=== PATIENT | male | born 1970 | race Caucasian/White ===

== ENCOUNTER 2024-11-06 07:04 | Outpatient (OUT) | payer BC, SELFPAY | END 2024-11-06 07:05 | disposition home or self-care (01) | LOC: PST 07:05 | PROVIDERS: PCP Nurse Practitioner; Visit Provider Surgery | DX: Z12.11 Encounter for screening for malignant neoplasm of colon (principal) ==

== ENCOUNTER 2024-11-17 06:45 | Day surgery (SDC) | payer BC, SELFPAY ==
[2024-11-17 07:00] VITALS: BP 132/87; PULSE 76; TEMP 36.2; O2SAT 95; BMI 33.0
[2024-11-17] MEDS: 0.9 % SODIUM CHLORIDE 500 ML 50 ML IV (07:21)
--- NOTE | 2024-11-17 08:06 | W.PM.PROCNOT ---
Date of procedure: 11/17/24 Pre-op diagnosis: screening colonoscopy Post-op diagnosis: same as pre-op Procedure: Previous colonoscopy: never procedure: screening colonoscopy The patient was given IV conscious sedation.? The patient's SPO2 remained above 90% throughout the procedure. The colonoscope was inserted per rectum and advanced under direct vision to the cecum without difficulty.? The prep was good.? Findings: Terminal ileum os: normal Cecum/Ascending colon: normal Transverse colon: normal Descending/Sigmoid colon: normal Rectum/Anus: examined in normal and retroflexed positions and was normal Withdrawal Time was (minutes): 10 The colon was decompressed and the scope was removed.? The patient tolerated the procedure well. Recommendations/Plan: 1.? Lifestyle and dietary modifications as discussed 2.? F/U in 10 years 3.? Discussed with the family Anesthesia: MAC Surgeon: Juan Antonio Angelo Pathology: none sent Condition: stable Disposition: PACU
[2024-11-17 08:36] VITALS: BP 94/57; PULSE 78; TEMP 36.6; O2SAT 95
[2024-11-17 08:50] VITALS: BP 122/78; PULSE 72; O2SAT 96
[2024-11-17 09:08] VITALS: BP 137/86; PULSE 78; O2SAT 97
== END 2024-11-17 09:20 | disposition home or self-care (01) ==
PROVIDERS: PCP Nurse Practitioner; Visit Provider Surgery
PROC: (CPT 812; principal; 2024-11-17 07:55)
DX: Z12.11 Encounter for screening for malignant neoplasm of colon (principal); Z87.891 Personal history of nicotine dependence; Z98.52 Vasectomy status
CPT/HCPCS: 45378; J2704